=== PATIENT | female | born 1955 | race Caucasian/White ===

== ENCOUNTER 2019-08-16 14:01 | Inpatient (IN) | payer MEDICARE ==
--- NOTE | 2019-08-16 14:46 | ER Document Report ---
ED General - General Chief Complaint: Altered Mental Status Stated Complaint: CONFUSION Time Seen by Provider: 08/16/19 14:26 Mode of Arrival: Medic Information source: Relative Notes: 64-year-old female patient presents the emergency department with chief complaint of altered mental status. Patient's daughter reports confusion started 3 days ago and has worsened today. Yesterday she started having a fever, nausea, vomiting and diarrhea. She has a history of recurrent pneumonias and daughter states that she gets altered when she has a pneumonia. Patient recently traveled from [place] to [place] and now to [place]. Patient has not taken any medications for her symptoms and she did not want to come to the emergency department today, her family had to force her. - Related Data Allergies/Adverse Reactions: No Known Allergies Allergy (Verified 08/16/19 18:15) Past Medical History - General Information source: Dr. Lozano Cannot obtain history due to: Altered mental status - Social History Smoking Status: Former Smoker Frequency of alcohol use: None Drug Abuse: None Family History: None - unable to obtain - Past Medical History Cardiac Medical History: Reports: Hx Hypercholesterolemia Endocrine Medical History: Reports: Hx Hypothyroidism Review of Systems - Review of Systems Constitutional: Chills, Fever EENT: No symptoms reported Cardiovascular: No symptoms reported Respiratory: Cough Gastrointestinal: Diarrhea, Nausea, Vomiting Genitourinary: No symptoms reported Female Genitourinary: No symptoms reported Musculoskeletal: No symptoms reported Skin: No symptoms reported Hematologic/Lymphatic: No symptoms reported Neurological/Psychological: Other - Altered mental status Physical Exam - Vital signs Vitals: Resp Pulse Ox 33 H 97 08/16/19 14:32 08/16/19 14:32 - Notes Notes: PHYSICAL EXAMINATION: GENERAL: Well-appearing, well-nourished, confused, oriented to person but not place or time. HEAD: Atraumatic, normocephalic. EYES: Pupils equal round and reactive to light, extraocular movements intact, conjunctiva are normal. ENT: Nares patent, oropharynx clear without exudates. Moist mucous membranes. NECK: Normal range of motion, supple without lymphadenopathy LUNGS: Rhonchi and wheezes noted to bilateral lower lobes. HEART: Regular rate and rhythm without murmurs ABDOMEN: Soft, nontender, nondistended abdomen. No guarding, no rebound. No masses appreciated. Female : deferred Musculoskeletal: Normal range of motion, no pitting or edema. No cyanosis. NEUROLOGICAL: Cranial nerves grossly intact. Normal speech, normal gait. Normal sensory, motor exams PSYCH: Normal mood, normal affect. SKIN: Warm, Dry, normal turgor, no rashes or lesions noted. Course - Re-evaluation Re-evalutation: EKG shows a sinus tachycardia, rate 109, QTc 442. Normal axis, no ST segment elevations or depressions to suggest ischemia. Labs reassuring. X-ray shows bilateral lower lobe pneumonia. Will start IV antibiotics. Patient continues to have altered mental status. She is also highly suspected to have COVID-19 due to her fever, nausea, vomiting, diarrhea and recent travel to multiple states. 08/16/19 16:52 Consulted hospitalist for admission, spoke with Kayla Cespedes she will come and evaluate the patient. - Vital Signs Vital signs: Temp Pulse Resp BP Pulse Ox 100.3 F 20 119/103 H 94 08/16/19 14:54 08/16/19 20:01 08/16/19 20:01 08/16/19 20:01 - Laboratory Result Diagrams: 08/16/19 14:32 08/16/19 14:32 Laboratory results interpreted by me: 08/16/19 08/16/19 08/16/19 14:32 14:32 14:32 RDW 14.3 H Seg Neuts % (Manual) 85 H Lymphocytes % (Manual) 7 L D-Dimer 3.56 H VBG pCO2 Glucose 143 H Lactate Dehydrogenase C-Reactive Protein Total Protein 6.2 L 08/16/19 08/16/19 16:30 16:40 RDW Seg Neuts % (Manual) Lymphocytes % (Manual) D-Dimer VBG pCO2 33.3 L Glucose Lactate Dehydrogenase 296 H C-Reactive Protein 209.1 H Total Protein Discharge - Discharge Clinical Impression: Pneumonia Qualifiers: Pneumonia type: due to unspecified organism Laterality: bilateral Lung location: lower lobe of lung Qualified Code(s): J18.9 - Pneumonia, unspecified organism AMS (altered mental status) Qualifiers: Altered mental status type: unspecified Qualified Code(s): R41.82 - Altered mental status, unspecified Condition: Good Disposition: ADMITTED INPATIENT Admitting Provider: Nate (Hospitalist) Unit Admitted: Telemetry
[2019-08-16 15:01] LABS: PARTIAL THROMBOPLASTIN TIME 30.3 SEC (23.5-35.8)
[2019-08-16 15:04] LABS: PROTHROMBIN TIME 13.2 SEC (11.4-15.4)
[2019-08-16 15:07] LABS: HEMATOCRIT 38.4 % (36.0-47.0); MEAN CORPUSCULAR HEMOGLOBIN 28.9 pg (27.0-33.4); MEAN CORPUSCULAR HGB CONC 33.8 g/dL (32.0-36.0); MEAN CORPUSCULAR VOLUME 86 fl (80-97); PLATELET COUNT 247 10^3/uL (150-450); RED BLOOD COUNT 4.48 10^6/uL (3.72-5.28); RED CELL DISTRIBUTION WIDTH 14.3 % (11.5-14.0); WHITE BLOOD COUNT 8.1 10^3/uL (4.0-10.5)
[2019-08-16 15:12] LABS: ALBUMIN 3.6 g/dL (3.5-5.0); ALKALINE PHOSPHATASE 113 U/L (38-126); ANION GAP 7 (5-19); ASPARTATE AMINO TRANSFERASE 25 U/L (14-36); BILIRUBIN,TOTAL 0.8 mg/dL (0.2-1.3); BLOOD UREA NITROGEN 12 mg/dL (7-20); CALCIUM 8.8 mg/dL (8.4-10.2); CARBON DIOXIDE 24 mmol/L (22-30); CHLORIDE 107 mmol/L (98-107); CREATINE KINASE 56 U/L (30-135); GLUCOSE 143 mg/dL (75-110); POTASSIUM 3.8 mmol/L (3.6-5.0); TOTAL PROTEIN 6.2 g/dL (6.3-8.2)
[2019-08-16 15:14] LABS: ALCOHOL < 10 mg/dL (NONE DETECTED)
--- NOTE | 2019-08-16 15:17 | RADIOLOGY REPORT (SQ) ---
EXAM DESCRIPTION: CHEST SINGLE VIEW IMAGES COMPLETED DATE/TIME: 08/16/2019 3:04 pm REASON FOR STUDY: ams COMPARISON: None. EXAM PARAMETERS: NUMBER OF VIEWS: One view. TECHNIQUE: Single frontal radiographic view of the chest acquired. RADIATION DOSE: NA LIMITATIONS: None. FINDINGS: LUNGS AND PLEURA: Patchy airspace disease in both lower lobes and possibly the lingula. N o effusions. MEDIASTINUM AND HILAR STRUCTURES: No masses. Contour normal. HEART AND VASCULAR STRUCTURES: Heart normal in size. Normal vasculature. BONES: No acute findings. HARDWARE: None in the chest. OTHER: No other significant finding. IMPRESSION: Bilateral pneumonia. TECHNICAL DOCUMENTATION: JOB ID: [id number] 2010 [employer]- All Rights Reserved Reading location - IP/workstation name: [email or web address]
[2019-08-16 15:34] LABS: ABSOLUTE LYMPHOCYTES# (MANUAL) 0.6 10^3/uL (0.5-4.7); ABSOLUTE MONOCYTES # (MANUAL) 0.2 10^3/uL (0.1-1.4); BAND NEUTROPHILS % (MANUAL) 4 % (3-5); BASOPHILS % (MANUAL) 0 % (0-2); EOSINOPHILS % (MANUAL) 0 % (0-6); LYMPHOCYTES % (MANUAL) 7 % (13-45); MONOCYTES % (MANUAL) 3 % (3-13); SEGMENTED NEUTROPHILS % (MAN) 85 % (42-78); TOTAL CELLS COUNTED 100
[2019-08-16 15:36] LABS: ANISOCYTOSIS SLIGHT; BURR CELLS SLIGHT; OVALOCYTES SLIGHT; PLATELET COMMENT ADEQUATE; POIKILOCYTOSIS SLIGHT; POLYCHROMASIA SLIGHT
[2019-08-16] MEDS ORDERED: CEFTRIAXONE 1 GM/D5W RTU 1 GM/50 ML RTUPB IV ONE (15:56)
[2019-08-16] MEDS ORDERED: AZITHROMYCIN INJ 500 MG VIAL IV ONE (15:56)
--- NOTE | 2019-08-16 16:12 | RADIOLOGY REPORT (SQ) ---
EXAM DESCRIPTION: CT HEAD WITHOUT IMAGES COMPLETED DATE/TIME: 08/16/2019 4:02 pm REASON FOR STUDY: ams COMPARISON: None. TECHNIQUE: Axial images acquired through the brain without intravenous contrast. Images reviewed wi th bone, brain and subdural windows. Additional sagittal and coronal reconstructions were generated. Images stored on PACS. All CT scanners at this facility use dose modulation, iterative reconstruction, and/or weight based d osing when appropriate to reduce radiation dose to as low as reasonably achievable (ALARA). [facility]: Dose Right [facility]: CareDose [facility]: Dose Right [facility]: Teradose 4D [facility]: IKOR METERING RADIATION DOSE: CT Rad equipment meets quality standard of care and radiation dose reduction techniq ues were employed. CTDIvol: 53.2 mGy. DLP: 991 mGy-cm. mGy. LIMITATIONS: None. FINDINGS: VENTRICLES: Normal size and contour. CEREBRUM: No masses. No hemorrhage. No midline shift. No evidence for acute infarction. Normal gra y/white matter differentiation. No areas of low density in the white matter. CEREBELLUM: No masses. No hemorrhage. No alteration of density. No evidence for acute infarction. EXTRAAXIAL SPACES: No fluid collections. No masses. ORBITS AND GLOBE: No intra- or extraconal masses. Normal contour of globe without masses. CALVARIUM: No fracture. PARANASAL SINUSES: No fluid or mucosal thickening. SOFT TISSUES: No mass or hematoma. OTHER: No other significant finding. IMPRESSION: NO ACUTE INTRACRANIAL IMAGING FINDINGS. EVIDENCE OF ACUTE STROKE: NO. COMMENT: Quality ID # [id number]: Final reports with documentation of one or more dose reduction techniques (e.g., Automated exposure control, adjustment of the mA and/or kV according to patient size, use of iterative reconstruction technique) TECHNICAL DOCUMENTATION: JOB ID: [id number] 2010 [employer]- All Rights Reserved Reading location - IP/workstation name: [email or web address]
[2019-08-16 17:05] LABS: VENOUS BLOOD BASE EXCESS -3.5 mmol/L; VENOUS BLOOD HCO3 20.4 mmol/L (20-32); VENOUS BLOOD PCO2 33.3 mmHg (35-63); VENOUS BLOOD PH 7.41 (7.30-7.42)
[2019-08-16 17:49] LABS: CREATINE KINASE MB 1.85 ng/mL (<4.55)
[2019-08-16 17:50] LABS: TROPONIN I < 0.012 ng/mL
[2019-08-16] MEDS ORDERED: ALBUTEROL SULFATE HFA (90 MCG/PUFF) 8 GM MDI IH PRN (17:57)
[2019-08-16] MEDS ORDERED: GUAIFENESIN SYRP 200 MG/10 ML UDC PO PRN (17:57)
[2019-08-16] MEDS ORDERED: ACETAMINOPHEN 325 MG TABLET PO PRN (17:57)
[2019-08-16] MEDS ORDERED: ALBUTEROL SULFATE HFA (90 MCG/PUFF) 8 GM MDI IH SCH (18:00)
[2019-08-16] MEDS ORDERED: MAG HYDROX/AL HYDROX/SIMETH SUSP 30 ML UDCUP PO PRN (18:01)
[2019-08-16] MEDS ORDERED: LORAZEPAM INJ 2 MG/1 ML VIAL IV PRN (18:02)
--- NOTE | 2019-08-16 18:17 | PDOC H&P ---
History of Present Illness Admission Date/PCP: 08/16/19 17:14 Patient complains of: fever, dyspnea History of Present Illness: BENJIE CALERO is a 64 year old female with a limited past medical history due to patient's altered mental status, limited knowledge of family members, and [id number] PCP. She is known to have fibromyalgia, hypothyroidism, and GERD, but no underlying lung disease. Patient recently traveled, by car, from [place] to [place] to [place]. She spent several days at each stop. She denies no known sick contacts, however, is coming from areas of high incidences of COVID. She presented to the emergency department today with a report of mild confusion x3 days that was significantly worsened today and associated with fever and sh ortness of breath. The patient answers in the affirmative to all questions, even when prompted with a question that would result in the negative. Unfortunately, her daughter is unable to provide additional information regarding her chronic medical conditions or present health concerns. Evaluation emergency department demonstrated fever of 101.6, Sinus tachycardia (HR 110), CBC with normal WBCs but elevated sed neutrophils and leukocytosis, unremarkable chemistry, normal troponin and lactic acid, negative serum alcohol and COVID-[address] is negative for acute findings. Chest x-ray demonstrates bilateral pneumonia. She was provided with Romycin and Rocephin. She placed on supplemental oxygen. She is referred to the hospitalist service for further evaluation and management of the above-stated complaints and findings. Past Medical History Cardiac Medical History: Reports: Hyperlipidema Endocrine Medical History: Reports: Hypothyroidism GI Medical History: Reports: Gastroesophageal Reflux Disease Musculoskeltal Medical History: Reports: Fibromyalgia Past Surgical History Past Surgical History: Reports: None Social History Information Source: Patient, Relative Lives with: Family Smoking Status: Former Smoker Electronic Cigarette use?: No Frequency of Alcohol Use: None Hx Recreational Drug Use: No - Advance Directive Resuscitation Status: Full Code Family History Family History: Reviewed & Not Pertinent Parental Family History Reviewed: Yes Children Family History Reviewed: Yes Sibling(s) Family History Reviewed.: Yes Review of Systems Constitutional: PRESENT: chills, fatigue, fever(s), weakness. ABSENT: headache(s), weight gain, weight loss Eyes: ABSENT: visual disturbances Ears: ABSENT: hearing changes Cardiovascular: ABSENT: chest pain, dyspnea on exertion, edema, orthropnea, palpitations Respiratory: PRESENT: cough, dyspnea. ABSENT: hemoptysis Gastrointestinal: PRESENT: diarrhea, nausea, vomiting. ABSENT: abdominal pain, constipation, hematemesis, hematochezia Genitourinary: ABSENT: dysuria, hematuria Musculoskeletal: ABSENT: joint swelling Integumentary: ABSENT: rash, wounds Neurological: PRESENT: confusion. ABSENT: abnormal gait, abnormal speech, dizziness, focal weakness, syncope Psychiatric: ABSENT: anxiety, depression, homidical ideation, suicidal ideation Endocrine: ABSENT: cold intolerance, heat intolerance, polydipsia, polyuria Hematologic/Lymphatic: ABSENT: easy bleeding, easy bruising Physical Exam Vital Signs: Temp Pulse Resp BP Pulse Ox 100.3 F 94 08/16/19 14:54 08/16/19 14:54 Intake & Output 08/15/19 08/16/19 08/17/19 06:59 06:59 06:59 Intake Total 50 Balance 50 Weight 81.647 kg General appearance: PRESENT: mild distress, well-developed, well-nourished - overweight Head exam: PRESENT: atraumatic, normocephalic Eye exam: PRESENT: conjunctiva pink, EOMI, PERRLA. ABSENT: scleral icterus Mouth exam: PRESENT: moist, tongue midline Respiratory exam: PRESENT: rhonchi, symmetrical, tachypnea, unlabored, other - Oxygen by nasal cannula. ABSENT: rales, wheezes Cardiovascular exam: PRESENT: RRR, +S1, +S2, tachycardia. ABSENT: diastolic murmur, rubs, systolic murmur Pulses: PRESENT: normal dorsalis pedis pul Vascular exam: PRESENT: normal capillary refill GI/Abdominal exam: PRESENT: normal bowel sounds, soft. ABSENT: distended, guarding, mass, organolmegaly, rebound, tenderness Rectal exam: PRESENT: deferred Extremities exam: PRESENT: full ROM. ABSENT: calf tenderness, clubbing, pedal edema Neurological exam: PRESENT: alert, awake, oriented to person, oriented to place, CN II-XII grossly intact, other - Oriented to person and place; does not follow directions or answer questions directly. Tangential thinking. Not at baseline per family.. ABSENT: oriented to time, oriented to situation, motor sensory deficit Psychiatric exam: PRESENT: anxious, normal mood. ABSENT: homicidal ideation, suicidal ideation Focused psych exam: PRESENT: restlessness Skin exam: PRESENT: dry, intact, warm. ABSENT: cyanosis, rash Results Laboratory Results: 08/16/19 14:32 08/16/19 14:32 08/16/19 08/16/19 08/16/19 14:32 14:32 16:40 WBC 8.1 RBC 4.48 Hgb 13.0 Hct 38.4 MCV 86 MCH 28.9 MCHC 33.8 RDW 14.3 H Plt Count 247 Seg Neutrophils % Not Reportable VBG pH VBG pCO2 VBG HCO3 VBG Base Excess Sodium 137.8 Potassium 3.8 Chloride 107 Carbon Dioxide 24 Anion Gap 7 BUN 12 Creatinine 0.66 Est GFR ( Amer) > 60 Glucose 143 H Lactic Acid 1.5 Calcium 8.8 Total Bilirubin 0.8 AST 25 Alkaline Phosphatase 113 Total Protein 6.2 L Albumin 3.6 08/16/19 16:40 WBC RBC Hgb Hct MCV MCH MCHC RDW Plt Count Seg Neutrophils % VBG pH 7.41 VBG pCO2 33.3 L VBG HCO3 20.4 VBG Base Excess -3.5 Sodium Potassium Chloride Carbon Dioxide Anion Gap BUN Creatinine Est GFR ( Amer) Glucose Lactic Acid Calcium Total Bilirubin AST Alkaline Phosphatase Total Protein Albumin 08/16/19 08/16/19 14:32 14:32 Creatine Kinase 56 CK-MB (CK-2) 1.85 Troponin I < 0.012 Impressions: Chest X-Ray 08/16/19 14:43 IMPRESSION: Bilateral pneumonia. Head CT 08/16/19 14:43 IMPRESSION: NO ACUTE INTRACRANIAL IMAGING FINDINGS. EVIDENCE OF ACUTE STROKE: NO. Assessment and Plan - Diagnosis (1) Pneumonia Qualifiers: Pneumonia type: due to unspecified organism Laterality: bilateral Lung location: lower lobe of lung Qualified Code(s): J18.9 - Pneumonia, unspecified organism Is this a current diagnosis for this admission?: Yes Plan: Patient presents with shortness of breath, nonproductive cough, and increased confusion. Associated with nausea vomiting and diarrhea. Noted to have a fever of 101. WBC is normal. Mild lymphocytosis. High risk exposure due to multistate travel ([place], [place]) by car over the last few days. Chest x-ray shows bilateral lower lobe pneumonia. Blood and sputum cultures pending. Patient is admitted to the medical floor on continuous cardiac telemetry and pulse oximetry. She is empirically placed on IV azithromycin and Rocephin for community-acquired pneumonia She is supported with supplemental oxygen. Schedule and as needed albuterol HFA. Mucinex twice daily. Robitussin as needed. Encourage pulmonary toilet with incentive spirometer and flutter valve. (2) Suspected COVID-19 virus infection Is this a current diagnosis for this admission?: Yes Plan: COVID-19 pending. D-dimer, ferritin, LDH, CRP pending. Full dose Lovenox. Start vitamin C, vitamin D, melatonin, and zinc. Supplemental oxygen as needed. Schedule and as needed albuterol HFA. Low threshold for increased oxygen support (high flow nasal cannula, nebulizer treatments). Contact and droplet precautions. (3) Acute respiratory failure Is this a current diagnosis for this admission?: Yes Plan: Secondary 1 and 2. Low suspicion for pulmonary embolus. Despite the patient's recent car travel, she does have a clear pneumonia by chest x-ray. D-dimer pending. She is on full dose Lovenox for COVID prophylaxis. (4) Acute encephalopathy Is this a current diagnosis for this admission?: Yes Plan: Acute metabolic encephalopathy secondary to all of the above. Cultures and antibiotics as above. IV fluids. Supportive care. - Time Time Spent with patient: 35 or more minutes Medications reviewed and adjusted accordingly: Yes Anticipated discharge: Home - Inpatient Certification Based on my medical assessment, after consideration of the patient's comorbidities, presenting symptoms, or acuity I expect that the services needed warrant INPATIENT care.: Yes I certify that my determination is in accordance with my understanding of Medicare's requirements for reasonable and necessary INPATIENT services [42 CFR 412.3e].: Yes Medical Necessity: Failure to Improve With Outpatient Therapy, Need Close Monitoring Due to Risk of Patient Decompensation, Need For IV Fluids, Need For Continuous Telemetry Monitoring, Need for Nebulizer Therapy and Monitoring of Response, Need for IV Antibiotics, Risk of Complication if Not Cared For in Hospital
[2019-08-16 18:39] LABS: APPEARANCE,URINE CLEAR; BILIRUBIN,URINE NEGATIVE (NEGATIVE); COLOR,URINE YELLOW; GLUCOSE, URINE NEGATIVE (NEGATIVE); KETONES,URINE NEGATIVE (NEGATIVE); LEUKOCYTE ESTERASE,URINE TRACE (NEGATIVE); NITRITE,URINE POSITIVE (NEGATIVE); PROTEIN,URINE NEGATIVE (NEGATIVE); URINE SPECIFIC GRAVITY 1.012; UROBILINOGEN,URINE NEGATIVE mg/dL (<2.0)
[2019-08-16] MEDS ORDERED: ALBUTEROL SULFATE HFA (90 MCG/PUFF) 200 PUFF/8.5 GM MDI IH PRN (18:45)
[2019-08-16 18:51] LABS: URINE AMPHETAMINES SCREEN NEGATIVE; URINE BARBITURATES SCREEN NEGATIVE; URINE BENZODIAZEPINES SCREEN NEGATIVE; URINE COCAINE SCREEN NEGATIVE; URINE MARIJUANA (THC) SCREEN NEGATIVE; URINE METHADONE SCREEN NEGATIVE; URINE PHENCYCLIDINE SCREEN NEGATIVE
[2019-08-16] MEDS ORDERED: MAG HYDROX/AL HYDROX/SIMETH SUSP 30 ML UDCUP PO ONE (19:00)
[2019-08-16 19:38] LABS: FERRITIN 84.4 ng/mL (11.1-264.0)
[2019-08-16 19:45] LABS: C-REACTIVE PROTEIN 209.1 mg/L (<10.0)
[2019-08-16] MEDS: PANTOPRAZOLE SODIUM 40 MG TABLET.DR PO SCH (20:47)
[2019-08-16] MEDS: ASCORBIC ACID 500 MG TABLET PO SCH (20:47)
[2019-08-16 20:53] LABS: ARTERIAL BLOOD BASE EXCESS -3.6 mmol/L; ARTERIAL BLOOD H2CO3 0.87 mmol/L (1.05-1.35); ARTERIAL BLOOD HCO3 19.4 mmol/L (20-24); ARTERIAL BLOOD O2 SATURATION 93.6 % (94-98); ARTERIAL BLOOD PCO2 28.8 mmHg (35-45); ARTERIAL BLOOD PH 7.45 (7.35-7.45); ARTERIAL BLOOD PO2 63.8 mmHg (80-100); ARTERIAL BLOOD TOTAL CO2 20.3 mmol/L (21-25)
[2019-08-16 20:57] LABS: ARTERIAL BLOOD FIO2 2L
[2019-08-16] MEDS: NORMAL SALINE 1000 ML 1,000 ML IV PRN (21:54)
[2019-08-16] MEDS ORDERED: HEPARIN SOD (PORCINE) 5,000 UNIT/ML 1 ML VIAL SUBCUT SCH (22:00)
[2019-08-16] MEDS: ENOXAPARIN SODIUM INJ 80 MG/0.8 ML DISP.SYRIN SUBCUT SCH (22:54)
[2019-08-16] MEDS: GUAIFENESIN 600 MG TABLET.SA PO SCH (22:54)
[2019-08-16] MEDS: MELATONIN 3 MG TABLET PO SCH (22:54)
[2019-08-17] MEDS: ALBUTEROL SULFATE HFA (90 MCG/PUFF) 200 PUFF/8.5 GM MDI IH SCH ×6 (00:16→23:19)
--- NOTE | 2019-08-17 02:25 | EKG REPORT ---
SEVERITY:- ABNORMAL ECG - SINUS TACHYCARDIA PROBABLE INFERIOR INFARCT, AGE INDETERMINATE : Confirmed by: Annelise Ghosh MD 17-Aug-2019 02:24:09
[2019-08-17] MEDS: PANTOPRAZOLE SODIUM 40 MG TABLET.DR PO SCH ×2 (05:35→17:13)
[2019-08-17 06:38] LABS: ABSOLUTE MONOCYTES (AUTO) 0.5 10^3/uL (0.1-1.4); ABSOLUTE NEUT (AUTO) 4.6 10^3/uL (1.7-8.2); BASOPHILS % (AUTO) 0.4 % (0-2); EOSINOPHILS % (AUTO) 0.6 % (0-6); HEMATOCRIT 31.4 % (36.0-47.0); LYMPHOCYTES % (AUTO) 15.8 % (13-45); MEAN CORPUSCULAR HEMOGLOBIN 29.3 pg (27.0-33.4); MEAN CORPUSCULAR HGB CONC 34.9 g/dL (32.0-36.0); MEAN CORPUSCULAR VOLUME 84 fl (80-97); MONOCYTES % (AUTO) 8.3 % (3-13); PLATELET COUNT 191 10^3/uL (150-450); RED BLOOD COUNT 3.75 10^6/uL (3.72-5.28); SEGMENTED NEUTROPHILS % (AUTO) 74.9 % (42-78); TOTAL CELLS COUNTED % (AUTO) 100 %; WHITE BLOOD COUNT 6.2 10^3/uL (4.0-10.5)
[2019-08-17 06:39] LABS: APPEARANCE,URINE CLEAR; BILIRUBIN,URINE NEGATIVE (NEGATIVE); COLOR,URINE YELLOW; GLUCOSE, URINE NEGATIVE (NEGATIVE); KETONES,URINE NEGATIVE (NEGATIVE); LEUKOCYTE ESTERASE,URINE TRACE (NEGATIVE); NITRITE,URINE NEGATIVE (NEGATIVE); PROTEIN,URINE NEGATIVE (NEGATIVE); URINE SPECIFIC GRAVITY 1.006; UROBILINOGEN,URINE NEGATIVE mg/dL (<2.0)
[2019-08-17 07:01] LABS: ANION GAP 5 (5-19); BLOOD UREA NITROGEN 8 mg/dL (7-20); CALCIUM 8.3 mg/dL (8.4-10.2); CARBON DIOXIDE 23 mmol/L (22-30); CHLORIDE 111 mmol/L (98-107); GLUCOSE 111 mg/dL (75-110); POTASSIUM 3.1 mmol/L (3.6-5.0)
[2019-08-17] MEDS: KETOROLAC TROMETHAMINE INJ/PF 30 MG/1 ML SDV ONE ×2 (07:08→07:22)
[2019-08-17] MEDS: NORMAL SALINE 1000 ML 1,000 ML IV PRN (07:29)
[2019-08-17] MEDS ORDERED: KETOROLAC TROMETHAMINE INJ/PF 30 MG/1 ML SDV IV ONE (08:00)
[2019-08-17 08:58] LABS: FREE T3 2.23 pg/mL (2.77-5.27); FREE T4 (FREE THYROXINE) 1.2 ng/dL (0.78-2.19)
[2019-08-17] MEDS ORDERED: POTASSIUM CHLORIDE 10 MEQ TABLET.ER PO ONE (09:00)
[2019-08-17] MEDS: ASCORBIC ACID 500 MG TABLET PO SCH ×2 (09:46→17:13)
[2019-08-17] MEDS: ZINC SULFATE 220 MG CAPSULE PO SCH (09:46)
[2019-08-17] MEDS: GUAIFENESIN 600 MG TABLET.SA PO SCH ×2 (09:46→21:25)
[2019-08-17] MEDS: METOCLOPRAMIDE HCL 10 MG TABLET PO SCH ×3 (09:46→17:13)
[2019-08-17] MEDS: DULOXETINE HCL 30 MG CAPSULE.DR PO SCH (09:46)
[2019-08-17] MEDS: CEFTRIAXONE 1 GM/D5W RTU 1 GM/50 ML RTUPB IV SCH (09:47)
[2019-08-17] MEDS: CHOLECALCIFEROL (D3) 400 UNIT TABLET PO SCH (09:47)
[2019-08-17] MEDS: UMECLIDINIUM BROMIDE 62.5 MCG/DOSE IH SCH (09:48)
[2019-08-17] MEDS: ENOXAPARIN SODIUM INJ 80 MG/0.8 ML DISP.SYRIN SUBCUT SCH ×2 (09:48→21:23)
[2019-08-17] MEDS ORDERED: (PENDING PHARMACY ID) (Duloxetine Hcl [Duloxetine Hcl] 60 MG) PO SCH (10:00)
[2019-08-17] MEDS: AZITHROMYCIN 500 MG in DEXTROSE 5%-WATER 250 ML IV SCH (11:27)
[2019-08-17] MEDS: IBUPROFEN 800 MG TABLET PO SCH ×2 (13:41→17:13)
--- NOTE | 2019-08-17 13:49 | PDOC PROGRESS REPORT ---
Subjective Progress Note for:: 08/17/19 Subjective:: BENJIE CALERO is a 64 year old female with a limited past medical history due to patient's altered mental status, limited knowledge of family members, and [id number] PCP. She is known to have fibromyalgia, hypothyroidism, and GERD, but no underlying lung disease. Patient recently traveled, by car, from [place] to [place] to [place]. Admitted 08/16/2019 encephalopathy, acute respiratory failure, and bilateral pneumonia. Patient was seen on afternoon rounds. She was found resting in bed, comfortably, on supplemental oxygen via nasal cannula. She is alert and oriented x4; brief periods of mild confusion, significantly improved from yesterday. Primary complaint today is chronic back pain related to her fibromyalgia. 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 She denies prescription drug abuse noted to in her UDS. She reports that her breathing is significantly improved; denies orthopnea and she further denies fever, chills, chest pain, palpitations Indicates her intent on leaving AGAINST MEDICAL ADVICE tomorrow regardless of whether or not her testing has resulted or her continued need for oxygen therapy. She is strongly advised against this. She has no other questions or concerns at this time. No concerns per nursing. Reason For Visit: PNEUMONIA,SUSPECT COVID,ENCEPHALOPATHY Physical Exam Vital Signs: Temp Pulse Resp BP Pulse Ox 98.3 F 81 19 136/41 H 91 L 08/17/19 08:03 08/17/19 08:03 08/17/19 08:03 08/17/19 08:03 08/17/19 08:03 Pulse Oximeter Continuous Start: 08/16/19 17:58 Freq: RTQ4 Status: Active Protocol: Document 08/17/19 04:33 CMI (Rec: 08/17/19 04:33 CMI [id number]) Pulse Oximetry Assessment Oxygen Saturation (92-100) 93 Oxygen Flow Rate (L/min) 2 Oxygen Delivery Method Nasal Cannula Fraction of Inspired Oxygen (FIO2) 28 Equipment Usage Equipment Standby Continuous SpO2 Machine # monitor Intake & Output 08/16/19 08/17/19 08/18/19 06:59 06:59 06:59 Intake Total 1310 300 Balance 1310 300 Weight 81.6 kg General appearance: PRESENT: no acute distress, cooperative, well-developed, well-nourished - Overweight Head exam: PRESENT: atraumatic, normocephalic Eye exam: PRESENT: conjunctiva pink, EOMI, PERRLA. ABSENT: scleral icterus Mouth exam: PRESENT: moist, tongue midline Respiratory exam: PRESENT: clear to auscultation brianne, decreased breath sounds, symmetrical, unlabored, other - Omental oxygen by nasal cannula. ABSENT: rales, rhonchi, wheezes Cardiovascular exam: PRESENT: RRR. ABSENT: diastolic murmur, rubs, systolic murmur Pulses: PRESENT: normal dorsalis pedis pul Vascular exam: PRESENT: normal capillary refill Extremities exam: PRESENT: full ROM. ABSENT: calf tenderness, clubbing, pedal edema Musculoskeletal exam: PRESENT: ambulatory Neurological exam: PRESENT: alert, awake, oriented to person, oriented to place, oriented to time, oriented to situation, CN II-XII grossly intact. ABSENT: motor sensory deficit Psychiatric exam: PRESENT: appropriate affect, normal mood. ABSENT: homicidal ideation, suicidal ideation Skin exam: PRESENT: dry, intact, warm. ABSENT: cyanosis, rash Results Laboratory Results: 08/17/19 06:08 08/17/19 06:08 08/16/19 08/16/19 08/16/19 14:32 14:32 16:30 WBC 8.1 RBC 4.48 Hgb 13.0 Hct 38.4 MCV 86 MCH 28.9 MCHC 33.8 RDW 14.3 H Plt Count 247 Seg Neutrophils % Not Reportable Carbonic Acid HCO3/H2CO3 Ratio ABG pH ABG pCO2 ABG pO2 ABG HCO3 ABG O2 Saturation ABG Base Excess VBG pH VBG pCO2 VBG HCO3 VBG Base Excess FiO2 Sodium 137.8 Potassium 3.8 Chloride 107 Carbon Dioxide 24 Anion Gap 7 BUN 12 Creatinine 0.66 Est GFR ( Amer) > 60 Glucose 143 H Lactic Acid Calcium 8.8 Ferritin 84.40 Total Bilirubin 0.8 AST 25 Alkaline Phosphatase 113 C-Reactive Protein 209.1 H Total Protein 6.2 L Albumin 3.6 TSH Free T4 Free T3 pg/mL Urine Color Urine Appearance Urine pH Ur Specific [place] Urine Protein Urine Glucose (UA) Urine Ketones Urine Blood Urine Nitrite Ur Leukocyte Esterase Urine WBC (Auto) Urine RBC (Auto) 08/16/19 08/16/19 08/16/19 16:40 16:40 17:49 WBC RBC Hgb Hct MCV MCH MCHC RDW Plt Count Seg Neutrophils % Carbonic Acid HCO3/H2CO3 Ratio ABG pH ABG pCO2 ABG pO2 ABG HCO3 ABG O2 Saturation ABG Base Excess VBG pH 7.41 VBG pCO2 33.3 L VBG HCO3 20.4 VBG Base Excess -3.5 FiO2 Sodium Potassium Chloride Carbon Dioxide Anion Gap BUN Creatinine Est GFR ( Amer) Glucose Lactic Acid 1.5 Calcium Ferritin Total Bilirubin AST Alkaline Phosphatase C-Reactive Protein Total Protein Albumin TSH Free T4 Free T3 pg/mL Urine Color YELLOW Urine Appearance CLEAR Urine pH 7.0 Ur Specific [place] 1.012 Urine Protein NEGATIVE Urine Glucose (UA) NEGATIVE Urine Ketones NEGATIVE Urine Blood NEGATIVE Urine Nitrite POSITIVE H Ur Leukocyte Esterase TRACE H Urine WBC (Auto) 0 Urine RBC (Auto) 08/16/19 08/17/19 08/17/19 20:03 05:51 06:08 WBC 6.2 RBC 3.75 Hgb 11.0 L Hct 31.4 L MCV 84 MCH 29.3 MCHC 34.9 RDW 14.0 Plt Count 191 Seg Neutrophils % 74.9 Carbonic Acid 0.87 L HCO3/H2CO3 Ratio 22:1 ABG pH 7.45 ABG pCO2 28.8 L ABG pO2 63.8 L ABG HCO3 19.4 L ABG O2 Saturation 93.6 L ABG Base Excess -3.6 VBG pH VBG pCO2 VBG HCO3 VBG Base Excess FiO2 2L Sodium Potassium Chloride Carbon Dioxide Anion Gap BUN Creatinine Est GFR ( Amer) Glucose Lactic Acid Calcium Ferritin Total Bilirubin AST Alkaline Phosphatase C-Reactive Protein Total Protein Albumin TSH Free T4 Free T3 pg/mL Urine Color YELLOW Urine Appearance CLEAR Urine pH 8.0 Ur Specific [place] 1.006 Urine Protein NEGATIVE Urine Glucose (UA) NEGATIVE Urine Ketones NEGATIVE Urine Blood NEGATIVE Urine Nitrite NEGATIVE Ur Leukocyte Esterase TRACE H Urine WBC (Auto) 4 Urine RBC (Auto) 0 08/17/19 08/17/19 08/17/19 06:08 06:08 06:08 WBC RBC Hgb Hct MCV MCH MCHC RDW Plt Count Seg Neutrophils % Carbonic Acid HCO3/H2CO3 Ratio ABG pH ABG pCO2 ABG pO2 ABG HCO3 ABG O2 Saturation ABG Base Excess VBG pH VBG pCO2 VBG HCO3 VBG Base Excess FiO2 Sodium 139.2 Potassium 3.1 L Chloride 111 H Carbon Dioxide 23 Anion Gap 5 BUN 8 Creatinine 0.60 Est GFR ( Amer) > 60 Glucose 111 H Lactic Acid Calcium 8.3 L Ferritin Total Bilirubin AST Alkaline Phosphatase C-Reactive Protein Total Protein Albumin TSH 0.08 L Free T4 1.20 Free T3 pg/mL 2.23 L Urine Color Urine Appearance Urine pH Ur Specific [place] Urine Protein Urine Glucose (UA) Urine Ketones Urine Blood Urine Nitrite Ur Leukocyte Esterase Urine WBC (Auto) Urine RBC (Auto) 08/16/19 08/16/19 14:32 14:32 Creatine Kinase 56 CK-MB (CK-2) 1.85 Troponin I < 0.012 Impressions: Chest X-Ray 08/16/19 14:43 IMPRESSION: Bilateral pneumonia. Head CT 08/16/19 14:43 IMPRESSION: NO ACUTE INTRACRANIAL IMAGING FINDINGS. EVIDENCE OF ACUTE STROKE: NO. Assessment and Plan - Diagnosis (1) Pneumonia Qualifiers: Pneumonia type: due to unspecified organism Laterality: bilateral Lung location: lower lobe of lung Qualified Code(s): J18.9 - Pneumonia, unspecified organism Is this a current diagnosis for this admission?: Yes Plan: Approved; decreased tachypnea, tachycardia, oxygen requirement. WBCs remain normal. Afebrile overnight; last fever at time of presentation to emergency department was 101.6. Patient presents with shortness of breath, nonproductive cough, and increased confusion. Associated with nausea vomiting and diarrhea. Noted to have a fever of 101. WBC is normal. Mild lymphocytosis. High risk exposure due to multistate travel ([place], [place]) by car over the last few days. Chest x-ray shows bilateral lower lobe pneumonia. Blood cultures have gram-positive cocci (1/4 bottles) Sputum cultures pending. Patient is admitted to the medical floor on continuous cardiac telemetry and pulse oximetry. She is empirically placed on IV azithromycin and Rocephin for community-acquired pneumonia She is supported with supplemental oxygen. Schedule and as needed albuterol HFA. Mucinex twice daily. Robitussin as needed. Encourage pulmonary toilet with incentive spirometer and flutter valve. (2) Suspected COVID-19 virus infection Is this a current diagnosis for this admission?: Yes Plan: COVID-19 pending. Plan mental laboratory evaluation continues to suggest Coronavirus; d-dimer 3.56, LDH 296, CRP 209. Ferritin nml. Full dose Lovenox. Start vitamin C, vitamin D, melatonin, and zinc. Supplemental oxygen as needed. Schedule and as needed albuterol HFA. Low threshold for increased oxygen support (high flow nasal cannula, nebulizer treatments). Contact and droplet precautions. (3) Acute respiratory failure Is this a current diagnosis for this admission?: Yes Plan: Improved. Secondary 1 and 2. Low suspicion for pulmonary embolus. Despite the patient's recent car travel, she does have a clear pneumonia by chest x-ray. She is on full dose Lovenox for COVID prophylaxis. Remaining evaluation and management as above. (4) Acute encephalopathy Is this a current diagnosis for this admission?: Yes Plan: Improved. Acute metabolic encephalopathy secondary to all of the above. Cultures and antibiotics as above. IV fluids. Supportive care. - Time Time Spent with patient: 35 or more minutes Medications reviewed and adjusted accordingly: Yes Anticipated discharge: Home Within: within 72 hours
[2019-08-17] MEDS: ATORVASTATIN CALCIUM 40 MG TABLET PO SCH (21:23)
[2019-08-17] MEDS: TRAMADOL HCL 50 MG TABLET PO PRN (21:23)
[2019-08-17] MEDS: TRAZODONE HCL 50 MG TABLET PO SCH (21:23)
[2019-08-17] MEDS: MELATONIN 3 MG TABLET PO SCH (21:24)
[2019-08-18] MEDS: TRAMADOL HCL 50 MG TABLET PO PRN ×2 (05:37→13:33)
[2019-08-18] MEDS: ALBUTEROL SULFATE HFA (90 MCG/PUFF) 200 PUFF/8.5 GM MDI IH SCH ×3 (05:37→17:31)
[2019-08-18] MEDS: LEVOTHYROXINE SODIUM 0.15 MG TABLET PO SCH (05:37)
[2019-08-18] MEDS: PANTOPRAZOLE SODIUM 40 MG TABLET.DR PO SCH ×2 (05:37→17:31)
[2019-08-18] MEDS: NORMAL SALINE 1000 ML 1,000 ML IV PRN ×2 (05:55→13:15)
[2019-08-18 07:07] LABS: HEMATOCRIT 30.6 % (36.0-47.0); HEMOGLOBIN 10.6 g/dL (12.0-15.5); MEAN CORPUSCULAR HEMOGLOBIN 28.9 pg (27.0-33.4); MEAN CORPUSCULAR HGB CONC 34.8 g/dL (32.0-36.0); MEAN CORPUSCULAR VOLUME 83 fl (80-97); PLATELET COUNT 182 10^3/uL (150-450); RED BLOOD COUNT 3.68 10^6/uL (3.72-5.28); RED CELL DISTRIBUTION WIDTH 13.8 % (11.5-14.0); WHITE BLOOD COUNT 4.7 10^3/uL (4.0-10.5)
[2019-08-18 07:24] LABS: BLOOD UREA NITROGEN 5 mg/dL (7-20); CALCIUM 8.4 mg/dL (8.4-10.2); GLUCOSE 88 mg/dL (75-110)
[2019-08-18 07:25] LABS: ANION GAP 5 (5-19); CARBON DIOXIDE 23 mmol/L (22-30); CHLORIDE 111 mmol/L (98-107); POTASSIUM 3.3 mmol/L (3.6-5.0)
[2019-08-18] MEDS ORDERED: POTASSIUM CHLORIDE 10 MEQ TABLET.ER PO ONE ×2 (08:00→10:30)
[2019-08-18] MEDS: DULOXETINE HCL 30 MG CAPSULE.DR PO SCH (10:31)
[2019-08-18] MEDS: ZINC SULFATE 220 MG CAPSULE PO SCH (10:31)
[2019-08-18] MEDS: ASCORBIC ACID 500 MG TABLET PO SCH ×2 (10:31→17:30)
[2019-08-18] MEDS: IBUPROFEN 800 MG TABLET PO SCH ×3 (10:31→17:30)
[2019-08-18] MEDS: METOCLOPRAMIDE HCL 10 MG TABLET PO SCH ×3 (10:31→17:30)
[2019-08-18] MEDS: GUAIFENESIN 600 MG TABLET.SA PO SCH ×2 (10:31→21:22)
[2019-08-18] MEDS: ENOXAPARIN SODIUM INJ 80 MG/0.8 ML DISP.SYRIN SUBCUT SCH ×2 (10:32→21:23)
[2019-08-18] MEDS: UMECLIDINIUM BROMIDE 62.5 MCG/DOSE IH SCH (10:32)
[2019-08-18] MEDS: CEFTRIAXONE 1 GM/D5W RTU 1 GM/50 ML RTUPB IV SCH (10:32)
[2019-08-18] MEDS: CHOLECALCIFEROL (D3) 400 UNIT TABLET PO SCH (10:33)
[2019-08-18] MEDS: AZITHROMYCIN 500 MG in DEXTROSE 5%-WATER 250 ML IV SCH (13:10)
--- NOTE | 2019-08-18 13:21 | PDOC PROGRESS REPORT ---
Subjective Progress Note for:: 08/18/19 Subjective:: BENJIE CALERO is a 64 year old female with a limited past medical history due to patient's altered mental status, limited knowledge of family members, and [id number] PCP. She is known to have fibromyalgia, hypothyroidism, and GERD, but no underlying lung disease. Patient recently traveled, by car, from [place] to [place]. Admitted 08/16/2019 encephalopathy, acute respiratory failure, and bilateral pneumonia. Patient was seen on morning rounds. She was found resting in bed. Upon entering the room, patient was found to be on room air and noted to have a continuous pulse ox reading 86%. She quickly put on her oxygen with return of saturation to 93%. She tells me that she " always have low oxygen," but has never been recommended for home O2 in the past. She is alert and oriented x4. She reports that her breathing is improved. She denies fever, chills, chest pain, palpitations, dyspnea, orthopnea, cough, abdominal pain, nausea vomiting diarrhea. She again tells me that she is going to leave AGAINST MEDICAL ADVICE; she is encouraged against this. She has no other questions or concerns at this time. No concerns per nursing. Reason For Visit: PNEUMONIA,SUSPECT COVID,ENCEPHALOPATHY Physical Exam Vital Signs: Temp Pulse Resp BP Pulse Ox 97.8 F 82 20 124/58 L 91 L 08/18/19 04:02 08/18/19 07:00 08/18/19 04:02 08/18/19 04:02 08/18/19 04:42 Pulse Oximeter Continuous Start: 08/16/19 17:58 Freq: RTQ4 Status: Active Protocol: Document 08/18/19 04:42 CMI (Rec: 08/18/19 04:43 CMI [id number]) Pulse Oximetry Assessment Oxygen Saturation (92-100) 91 Oxygen Flow Rate (L/min) 1 Oxygen Delivery Method Nasal Cannula Fraction of Inspired Oxygen (FIO2) 24 Equipment Usage Equipment in Use Continuous SpO2 Machine # [id number] Intake & Output 08/17/19 08/18/19 08/19/19 06:59 06:59 06:59 Intake Total 1310 1300 50 Output Total 800 Balance 1310 500 50 Weight 81.6 kg 78 kg General appearance: PRESENT: no acute distress, cooperative, well-developed, well-nourished - Overweight Head exam: PRESENT: atraumatic, normocephalic Eye exam: PRESENT: conjunctiva pink, EOMI, PERRLA. ABSENT: scleral icterus Mouth exam: PRESENT: moist, tongue midline Respiratory exam: PRESENT: clear to auscultation brianne, symmetrical, unlabored, other - Supplemental oxygen via nasal cannula. ABSENT: rales, rhonchi, wheezes Cardiovascular exam: PRESENT: RRR. ABSENT: diastolic murmur, rubs, systolic murmur Vascular exam: PRESENT: normal capillary refill Extremities exam: PRESENT: full ROM. ABSENT: calf tenderness, clubbing, pedal edema Musculoskeletal exam: PRESENT: ambulatory Neurological exam: PRESENT: alert, awake, oriented to person, oriented to place, oriented to time, oriented to situation, CN II-XII grossly intact. ABSENT: motor sensory deficit Psychiatric exam: PRESENT: appropriate affect, normal mood. ABSENT: homicidal ideation, suicidal ideation Skin exam: PRESENT: dry, intact, warm. ABSENT: cyanosis, rash Results Laboratory Results: 08/18/19 06:20 08/18/19 06:20 08/18/19 08/18/19 06:20 06:20 WBC 4.7 RBC 3.68 L Hgb 10.6 L Hct 30.6 L MCV 83 MCH 28.9 MCHC 34.8 RDW 13.8 Plt Count 182 Sodium 139.0 Potassium 3.3 L Chloride 111 H Carbon Dioxide 23 Anion Gap 5 BUN 5 L Creatinine 0.61 Est GFR ( Amer) > 60 Glucose 88 Calcium 8.4 08/16/19 16:24 Blood Blood Culture (PCR) - Final Staphylococcus Species Streptococcus Species 08/16/19 17:49 Clean Catch Midstream Urine Culture - Final NO GROWTH 2 DAYS 08/16/19 08/16/19 14:32 14:32 Creatine Kinase 56 CK-MB (CK-2) 1.85 Troponin I < 0.012 Impressions: Chest X-Ray 08/16/19 14:43 IMPRESSION: Bilateral pneumonia. Head CT 08/16/19 14:43 IMPRESSION: NO ACUTE INTRACRANIAL IMAGING FINDINGS. EVIDENCE OF ACUTE STROKE: NO. Assessment and Plan - Diagnosis (1) Pneumonia Qualifiers: Pneumonia type: due to unspecified organism Laterality: bilateral Lung location: lower lobe of lung Qualified Code(s): J18.9 - Pneumonia, unspecified organism Is this a current diagnosis for this admission?: Yes Plan: Improved; remains afebrile, WBCs remain normal, tachypnea and tachycardia have resolved. Continues to require supplemental oxygen. Patient presents with shortness of breath, nonproductive cough, and increased confusion. Associated with nausea vomiting and diarrhea. Noted to have a fever of 101. WBC is normal. Mild lymphocytosis. High risk exposure due to multistate travel ([place], [place]) by car over the last few days. Chest x-ray shows bilateral lower lobe pneumonia. Blood cultures have gram-positive cocci (1/4 bottles) Sputum cultures pending. Patient is admitted to the medical floor on continuous pulse oximetry. She is empirically placed on IV azithromycin and Rocephin for community-acquired pneumonia. Day #2. She is supported with supplemental oxygen. Schedule and as needed albuterol HFA. Mucinex twice daily. Robitussin as needed. Encourage pulmonary toilet with incentive spirometer and flutter valve. (2) Suspected COVID-19 virus infection Is this a current diagnosis for this admission?: Yes Plan: COVID-19 pending. Supplemental laboratory evaluation continues to suggest Coronavirus; d-dimer 3.56, LDH 296, CRP 209. Ferritin nml. Full dose Lovenox. Start vitamin C, vitamin D, melatonin, and zinc. Supplemental oxygen as needed. Schedule and as needed albuterol HFA. Low threshold for increased oxygen support (high flow nasal cannula, nebulizer treatments). Contact and droplet precautions. (3) Acute respiratory failure Is this a current diagnosis for this admission?: Yes Plan: Improved. Continues to require supplemental oxygen. Secondary 1 and 2. Low suspicion for pulmonary embolus. Despite the patient's recent car travel, she does have a clear pneumonia by chest x-ray. She is on full dose Lovenox for COVID prophylaxis. Remaining evaluation and management as above. (4) Acute encephalopathy Is this a current diagnosis for this admission?: Yes Plan: Resolved. Acute metabolic encephalopathy secondary to all of the above. Cultures and antibiotics as above. Supportive care. (5) Bacteremia Is this a current diagnosis for this admission?: Yes Plan: Blood cultures on admission positive for Staphylococcus and Streptococcus in 1 set (2/4 bottles). Patient continues to be afebrile. WBC is normal. Repeat blood cultures in the morning. Anticipate that final blood cultures will result is contaminants. - Time Time Spent with patient: 25-34 minutes Medications reviewed and adjusted accordingly: Yes Anticipated discharge: Home Within: within 48 hours
[2019-08-18] MEDS: TRAZODONE HCL 50 MG TABLET PO SCH (21:22)
[2019-08-18] MEDS: ATORVASTATIN CALCIUM 40 MG TABLET PO SCH (21:22)
[2019-08-18] MEDS: MELATONIN 3 MG TABLET PO SCH (21:22)
[2019-08-19] MEDS: ALBUTEROL SULFATE HFA (90 MCG/PUFF) 200 PUFF/8.5 GM MDI IH SCH ×2 (03:31→06:40)
[2019-08-19] MEDS: TRAMADOL HCL 50 MG TABLET PO PRN (04:11)
[2019-08-19 06:13] LABS: APPEARANCE,URINE CLEAR; BILIRUBIN,URINE NEGATIVE (NEGATIVE); COLOR,URINE STRAW; GLUCOSE, URINE NEGATIVE (NEGATIVE); KETONES,URINE TRACE mg/dL (NEGATIVE); LEUKOCYTE ESTERASE,URINE NEGATIVE (NEGATIVE); NITRITE,URINE NEGATIVE (NEGATIVE); PROTEIN,URINE NEGATIVE (NEGATIVE); URINE SPECIFIC GRAVITY 1.004; UROBILINOGEN,URINE NEGATIVE mg/dL (<2.0)
[2019-08-19 06:14] LABS: HEMATOCRIT 34.5 % (36.0-47.0); HEMOGLOBIN 11.9 g/dL (12.0-15.5); MEAN CORPUSCULAR HEMOGLOBIN 28.5 pg (27.0-33.4); MEAN CORPUSCULAR HGB CONC 34.6 g/dL (32.0-36.0); MEAN CORPUSCULAR VOLUME 83 fl (80-97); PLATELET COUNT 225 10^3/uL (150-450); RED BLOOD COUNT 4.18 10^6/uL (3.72-5.28); RED CELL DISTRIBUTION WIDTH 13.8 % (11.5-14.0); WHITE BLOOD COUNT 4.5 10^3/uL (4.0-10.5)
[2019-08-19 06:29] LABS: ANION GAP 10 (5-19); BLOOD UREA NITROGEN 4 mg/dL (7-20); CARBON DIOXIDE 23 mmol/L (22-30); CHLORIDE 105 mmol/L (98-107); GLUCOSE 99 mg/dL (75-110); POTASSIUM 3.2 mmol/L (3.6-5.0)
[2019-08-19] MEDS: LEVOTHYROXINE SODIUM 0.15 MG TABLET PO SCH (06:40)
[2019-08-19] MEDS: PANTOPRAZOLE SODIUM 40 MG TABLET.DR PO SCH ×2 (06:40→17:54)
[2019-08-19] MEDS ORDERED: POTASSIUM CHLORIDE 10 MEQ TABLET.ER PO ONE (09:00)
[2019-08-19] MEDS: IBUPROFEN 800 MG TABLET PO SCH ×2 (09:51→14:45)
[2019-08-19] MEDS: GUAIFENESIN 600 MG TABLET.SA PO SCH ×2 (09:51→21:09)
[2019-08-19] MEDS: DULOXETINE HCL 30 MG CAPSULE.DR PO SCH (09:51)
[2019-08-19] MEDS: ASCORBIC ACID 500 MG TABLET PO SCH ×2 (09:52→17:54)
[2019-08-19] MEDS: UMECLIDINIUM BROMIDE 62.5 MCG/DOSE IH SCH (09:55)
[2019-08-19] MEDS: CEFTRIAXONE 1 GM/D5W RTU 1 GM/50 ML RTUPB IV SCH (09:55)
[2019-08-19] MEDS: CHOLECALCIFEROL (D3) 400 UNIT TABLET PO SCH (09:59)
[2019-08-19] MEDS: METOCLOPRAMIDE HCL 10 MG TABLET PO SCH ×2 (10:00→14:45)
[2019-08-19] MEDS ORDERED: LORAZEPAM INJ 2 MG/1 ML VIAL IV ONE (10:15)
[2019-08-19] MEDS: HYDROCODONE/ACETAMINOPHEN 5-325 MG TABLET PO PRN ×2 (10:59→21:14)
[2019-08-19] MEDS ORDERED: LIDOCAINE 5% (700 MG) TRANSDERMAL ADH..PATCH TP ONE (11:00)
[2019-08-19] MEDS: ZINC SULFATE 220 MG CAPSULE PO SCH (11:03)
[2019-08-19] MEDS ORDERED: PROMETHAZINE HCL INJ 25 MG/1 ML VIAL IV PRN (11:06)
[2019-08-19] MEDS ORDERED: ONDANSETRON HCL INJ/PF 4 MG/2 ML SDV ONE (11:19)
[2019-08-19] MEDS: AZITHROMYCIN 500 MG in DEXTROSE 5%-WATER 250 ML IV SCH (12:00)
[2019-08-19] MEDS ORDERED: ALBUTEROL SULFATE 0.083% NEB 2.5 MG/3 ML AMPUL NEB PRN (12:36)
--- NOTE | 2019-08-19 12:39 | PDOC PROGRESS REPORT ---
Subjective Progress Note for:: 08/19/19 Subjective:: BENJIE CALERO is a 64 year old female with a limited past medical history due to patient's altered mental status, limited knowledge of family members, and [id number] PCP. She is known to have fibromyalgia, hypothyroidism, and GERD, but no underlying lung disease. Patient recently traveled, by car, from [place] to [place] to [place]. Admitted 08/16/2019 encephalopathy, acute respiratory failure, and bilateral pneumonia. Patient was seen on morning rounds. She was found resting in bed on supplemental oxygen via NC at 3lpm with continuous pulse ox reading 76%. Oxygen increased to 4 L/min with return of acceptable SPO2. Patient states that she is feeling well; she denies any respiratory symptoms. She attempts to tell me that the reason her SPO2 was so low this morning is because she has "severe fibromyalgia." She further denies fever, chills, chest pain, palpitations, dyspnea, orthopnea, cough, abdominal pain, nausea vomiting diarrhea. She again tells me that she is going to leave AGAINST MEDICAL ADVICE if I do not prescribe for her to use home O2 so that she may leave. I did discuss possible home oxygen needs yesterday; at that time though, patient told me that she intended to use the oxygen just long enough to get to her son's house in [place] and then would "leave it there because clearly I do not need it." Based on this conversation, and the patient's statement of clear intent to be noncompliant, I do not feel it is safe to discharge her at this time. Patient is informed of my decision/rationale. No concerns per nursing. Reason For Visit: PNEUMONIA,SUSPECT COVID,ENCEPHALOPATHY Physical Exam Vital Signs: Temp Pulse Resp BP Pulse Ox 97.4 F 67 20 135/73 H 95 08/19/19 11:05 08/19/19 11:05 08/19/19 11:05 08/19/19 11:05 08/19/19 11:05 Pulse Oximeter Continuous Start: 08/16/19 17:58 Freq: RTQ4 Status: Active Protocol: Document 08/19/19 08:00 JOSE DANIEL (Rec: 08/19/19 09:07 JOSE DANIEL [email or web address]) Pulse Oximetry Assessment Oxygen Saturation (92-100) 99 Oxygen Flow Rate (L/min) 2 Oxygen Delivery Method Nasal Cannula Fraction of Inspired Oxygen (FIO2) 28 Equipment Usage Equipment in Use Continuous SpO2 Machine # [id number] Intake & Output 08/18/19 08/19/19 08/20/19 06:59 06:59 06:59 Intake Total 1300 2597 Output Total 800 3 Balance 500 2594 Weight 78 kg 77.8 kg General appearance: PRESENT: no acute distress, mild distress, well-developed, well-nourished - Overweight. ABSENT: cooperative Head exam: PRESENT: atraumatic, normocephalic Eye exam: PRESENT: conjunctiva pink, EOMI, PERRLA. ABSENT: scleral icterus Mouth exam: PRESENT: moist, tongue midline Respiratory exam: PRESENT: prolonged expiratory phas, symmetrical, tachypnea, other - Supplemental oxygen by nasal cannula. ABSENT: rales, rhonchi, wheezes Cardiovascular exam: PRESENT: RRR. ABSENT: diastolic murmur, rubs, systolic murmur Vascular exam: PRESENT: normal capillary refill Extremities exam: PRESENT: full ROM. ABSENT: calf tenderness, clubbing, pedal edema Neurological exam: PRESENT: alert, awake, oriented to person, oriented to place, oriented to time, oriented to situation, CN II-XII grossly intact. ABSENT: motor sensory deficit Psychiatric exam: PRESENT: appropriate affect, normal mood. ABSENT: homicidal ideation, suicidal ideation Skin exam: PRESENT: dry, intact, warm. ABSENT: cyanosis, rash Results Laboratory Results: 08/19/19 05:22 08/19/19 05:22 08/19/19 08/19/19 08/19/19 05:22 05:22 05:22 WBC 4.5 RBC 4.18 Hgb 11.9 L Hct 34.5 L MCV 83 MCH 28.5 MCHC 34.6 RDW 13.8 Plt Count 225 Sodium 137.7 Potassium 3.2 L Chloride 105 Carbon Dioxide 23 Anion Gap 10 BUN 4 L Creatinine 0.48 L Est GFR ( Amer) > 60 Glucose 99 Calcium 9.0 Magnesium 1.9 Urine Color Urine Appearance Urine pH Ur Specific [place] Urine Protein Urine Glucose (UA) Urine Ketones Urine Blood Urine Nitrite Ur Leukocyte Esterase Urine WBC (Auto) 08/19/19 05:29 WBC RBC Hgb Hct MCV MCH MCHC RDW Plt Count Sodium Potassium Chloride Carbon Dioxide Anion Gap BUN Creatinine Est GFR ( Amer) Glucose Calcium Magnesium Urine Color STRAW Urine Appearance CLEAR Urine pH 8.0 Ur Specific [place] 1.004 Urine Protein NEGATIVE Urine Glucose (UA) NEGATIVE Urine Ketones TRACE H Urine Blood NEGATIVE Urine Nitrite NEGATIVE Ur Leukocyte Esterase NEGATIVE Urine WBC (Auto) 0 08/16/19 16:24 Blood Blood Culture (PCR) - Final Staphylococcus Species Streptococcus Species 08/16/19 08/16/19 14:32 14:32 Creatine Kinase 56 CK-MB (CK-2) 1.85 Troponin I < 0.012 Impressions: Chest X-Ray 08/16/19 14:43 IMPRESSION: Bilateral pneumonia. Head CT 08/16/19 14:43 IMPRESSION: NO ACUTE INTRACRANIAL IMAGING FINDINGS. EVIDENCE OF ACUTE STROKE: NO. Assessment and Plan - Diagnosis (1) Pneumonia Qualifiers: Pneumonia type: due to unspecified organism Laterality: bilateral Lung location: lower lobe of lung Qualified Code(s): J18.9 - Pneumonia, unspecified organism Is this a current diagnosis for this admission?: Yes Plan: Improved; remains afebrile, WBCs remain normal, tachypnea and tachycardia have resolved. Continues to require supplemental oxygen. Patient presents with shortness of breath, nonproductive cough, and increased confusion. Associated with nausea vomiting and diarrhea. Noted to have a fever of 101. WBC is normal. Mild lymphocytosis. High risk exposure due to multistate travel ([place], [place]) by car over the last few days. Chest x-ray shows bilateral lower lobe pneumonia. Blood cultures (1/4 bottles) shows Staphylococcus and Streptococcus salivarius Sputum cultures not obtained; no sputum production Patient is admitted to the medical floor on continuous pulse oximetry. She is empirically placed on IV azithromycin and Rocephin for community-acquired pneumonia. Day #3. Consider transition to p.o. abx tomorrow. She is supported with supplemental oxygen. Start scheduled and as needed nebs Mucinex twice daily. Robitussin as needed. Encourage pulmonary toilet with incentive spirometer, flutter valve, and early ambulation. (2) Suspected COVID-19 virus infection Is this a current diagnosis for this admission?: Yes Plan: COVID-19 Negative Supplemental laboratory evaluation continues to suggest Coronavirus; d-dimer 3.56, LDH 296, CRP 209. Ferritin nml. D/c Full dose Lovenox. Continue vitamin C, vitamin D, melatonin, and zinc. Remaining management as above. (3) Acute respiratory failure Is this a current diagnosis for this admission?: Yes Plan: Improved. Continues to require supplemental oxygen. Secondary to #1 Likely underlying COPD Low suspicion for pulmonary embolus. Despite the patient's recent car travel, she does have a clear pneumonia by chest x-ray. Repeat d-dimer is improved. Desired CTA Chest today for definitive rule out. Patient has refused IV start. Will start p.o. prednisone for presumed COPD. Remaining evaluation and management as above. (4) Acute encephalopathy Is this a current diagnosis for this admission?: Yes Plan: Resolved. Acute metabolic encephalopathy secondary to all of the above. Cultures and antibiotics as above. Supportive care. (5) Bacteremia Is this a current diagnosis for this admission?: Yes Plan: Blood cultures on admission positive for Staphylococcus and Streptococcus in 1 s et (2/4 bottles). Patient continues to be afebrile. WBC is normal. Repeat blood cultures have NGTD Anticipate that final blood cultures will result is contaminants. - Time Time Spent with patient: 25-34 minutes
[2019-08-19] MEDS ORDERED: PREDNISONE 20 MG TABLET PO SCH (13:15)
[2019-08-19] MEDS: HEPARIN SOD (PORCINE) 5,000 UNIT/ML 1 ML VIAL SUBCUT SCH ×2 (14:46→21:10)
[2019-08-19] MEDS: IPRATROPIUM/ALBUTEROL 0.5-2.5 MG/3 ML AMPUL NEB SCH (16:06)
[2019-08-19] MEDS: ONDANSETRON HCL INJ/PF 4 MG/2 ML SDV IV PRN (17:01)
[2019-08-19] MEDS ORDERED: MORPHINE SULFATE 10 MG/ML INJ IV ONE (17:09)
[2019-08-19] MEDS ORDERED: MORPHINE SULFATE 10 MG/ML INJ ONE (17:44)
--- NOTE | 2019-08-19 19:28 | RADIOLOGY REPORT (SQ) ---
EXAM DESCRIPTION: CTA CHEST IMAGES COMPLETED DATE/TIME: 08/19/2019 7:12 pm REASON FOR STUDY: dyspnea COMPARISON: None. TECHNIQUE: CT scan of the chest performed using helical scanning technique with dynamic intravenous contrast injection. Images reviewed with lung, soft tissue and bone windows. Reconstructed coronal and sagittal MPR images reviewed. Additional 3 dimensional post-processing performed to develop Maximal Intensity Projection images ([place] P). All images stored on PACS. All CT scanners at this facility use dose modulation, iterative reconstruction, and/or weight based d osing when appropriate to reduce radiation dose to as low as reasonably achievable (ALARA). [facility]: Dose Right [facility]: CareDose [facility]: Dose Right [facility]: Teradose 4D [facility]: GENWI CONTRAST TYPE AND DOSE: contrast/concentration: Isovue 350.00 mmol/ml; Total Contrast Delivered: 59. 0 ml; Total Saline Delivered: 80.0 ml Contrast bolus adequate for pulmonary arteries and aorta. RENAL FUNCTION: BUN 4 creatinine 0.48 RADIATION DOSE: CT Rad equipment meets quality standard of care and radiation dose reduction techniq ues were employed. CTDIvol: 9.9 - 14.3 mGy. DLP: 507 mGy-cm. . LIMITATIONS: None. FINDINGS: LUNGS AND PLEURA: Centrilobular emphysematous changes. Couple of areas of ground-glass in filtrate in the left upper lobe and right middle lobe AORTA AND GREAT VESSELS: No aneurysm. No dissection. HEART: No pericardial effusion. No significant coronary artery calcifications. PULMONARY ARTERIES: No emboli visualized in the main pulmonary arteries or the segmental branches. HILAR AND MEDIASTINAL STRUCTURES: There is precarinal and aorticopulmonary window adenopathy. The la rgest node is in the AP window and measures 11.6 mm in short axis. HARDWARE: None in the chest. UPPER ABDOMEN: No significant findings. Limited exam. THYROID AND OTHER SOFT TISSUES: No masses. No adenopathy. BONES: No acute or significant finding. 3D MIPS: Confirm above findings. OTHER: No other significant finding. IMPRESSION: 1. There is no pulmonary embolus. There is no aortic aneurysm or dissection. 2. Pulmonary emphysema. 3. There are areas of ground-glass infiltrate in the left upper lobe and right middle lobe. This ma y suggest an atypical infectious/ inflammatory process. COMMENT: Quality ID # [id number]: Final reports with documentation of one or more dose reduction techniques (e.g., Automated exposure control, adjustment of the mA and/or kV according to patient size, use of iterative reconstruction technique) TECHNICAL DOCUMENTATION: JOB ID: [id number] 2010 [employer]- All Rights Reserved Reading location - IP/workstation name: [email or web address]
[2019-08-19] MEDS: ATORVASTATIN CALCIUM 40 MG TABLET PO SCH (21:09)
[2019-08-19] MEDS: MELATONIN 3 MG TABLET PO SCH (21:09)
[2019-08-19] MEDS: TRAZODONE HCL 50 MG TABLET PO SCH (21:10)
[2019-08-20] MEDS: IPRATROPIUM/ALBUTEROL 0.5-2.5 MG/3 ML AMPUL NEB SCH ×2 (00:16→09:06)
[2019-08-20] MEDS: HYDROCODONE/ACETAMINOPHEN 5-325 MG TABLET PO PRN (03:19)
[2019-08-20] MEDS: PANTOPRAZOLE SODIUM 40 MG TABLET.DR PO SCH (05:26)
[2019-08-20] MEDS: HEPARIN SOD (PORCINE) 5,000 UNIT/ML 1 ML VIAL SUBCUT SCH (05:26)
[2019-08-20] MEDS: LEVOTHYROXINE SODIUM 0.15 MG TABLET PO SCH (05:26)
[2019-08-20] MEDS: ONDANSETRON HCL INJ/PF 4 MG/2 ML SDV IV PRN (06:21)
[2019-08-20] MEDS: IBUPROFEN 800 MG TABLET PO SCH (06:42)
[2019-08-20] MEDS: METOCLOPRAMIDE HCL 10 MG TABLET PO SCH (07:35)
[2019-08-20 08:29] VITALS: BP 130/62
[2019-08-20] MEDS ORDERED: HYDROCODONE/ACETAMINOPHEN 5-325 MG TABLET PO PRN (09:08)
--- NOTE | 2019-08-21 07:48 | Left Against Medical Advice ---
Against Medical Advice Admission Date/Time: 08/16/19 17:14 Primary Care Provider: Date of Patient Emigration: 08/20/19 - Diagnosis: (1) Pneumonia Is this a current diagnosis for this admission?: Yes (2) Suspected COVID-19 virus infection Is this a current diagnosis for this admission?: Yes (3) Acute respiratory failure Is this a current diagnosis for this admission?: Yes (4) Acute encephalopathy Is this a current diagnosis for this admission?: Yes (5) Bacteremia Is this a current diagnosis for this admission?: Yes - Summary: Summary: Please see Admission and Progress Notes as well. BENJIE CALERO is a 64 F, who LEFT AGAINST MEDICAL ADVICE. The Patient was admitted on 08/16/19 17:14. The patient was admitted with acute respiratory failure with hypoxia secondary to pneumonia and underlying COPD. She was initially placed under COVID-19 precautions; testing negative. She was empirically placed on IV azithromycin and Rocephin at admission and further supported with supplemental oxygen, BiPAP, scheduled and as needed nebulizer treatments, and IV steroids. The patient's fever, nausea vomiting diarrhea, and cough resolved. She denied dyspnea, however, continued to have SPO2 in the mid 80s while on supplemental oxygen at rest. Follow-up CTA was obtained to ensure that patient did not have a pulmonary embolus (recent 16-hour car drive from [place]). CT was negative for pulmonary embolus, confirmed pulmonary emphysema, as well as groundglass infiltrates to the left upper lobe and right middle lobe. Antibiotics and respiratory support as mentioned above were continued with increased focus on pulmonary toilet. Throughout patient's admission, she made numerous mentions of her intent to leave AGAINST MEDICAL ADVICE. Unfortunately, she chose to do so on 08/20/2019. In anticipation of the patient's emigration, I had placed paper prescriptions in her chart for Augmentin, azithromycin, and prednisone. Per nursing notes, patient declined these.
== END 2019-08-20 10:17 | disposition left against medical advice (07) | DRG 193 ==
LOC: ER 14:01 → EH 17:14 → 3N 22:00 → 3S 08-19 06:50
PROVIDERS: ADMIT Internal Medicine; ATTEND Registered Nurse
DX: J18.9 Pneumonia, unspecified organism (principal); J96.01 Acute respiratory failure with hypoxia; G93.41 Metabolic encephalopathy; Z20.828 Contact with and (suspected) exposure to other viral communicable diseases; J43.9 Emphysema, unspecified; M79.7 Fibromyalgia; E03.9 Hypothyroidism, unspecified; K21.9 Gastro-esophageal reflux disease without esophagitis; E78.5 Hyperlipidemia, unspecified; Z87.891 Personal history of nicotine dependence
CPT/HCPCS: 36415; 70450; 71045; 71275; 80048; 80053; 80307; 81001; 82550; 82553; 82728; 82803; 83605; 83615; 83735; 84439; 84443; 84481; 84484; 85025; 85027; 85379; 85610; 85730; 86140; 87040; 87077; 87086; 87150; 87186; 87635; 93005; 93010; 94667; 94668; 94762; 94799; 96365; 96375; 99285; C9803; J0456; J0696; J1644; J1650; J1885; J2060; J2270; J2405; J2550; J3490; J7030; J7060; J7512